=== PATIENT | male | born 1945 | race Caucasian/White ===

== ENCOUNTER 2021-10-19 07:37 | Outpatient (CLI) | payer MEDICARE, SELFPAY ==
--- NOTE | ~2021-10-19 | US_ITS ---
EXAMINATION: US renal BI DATE: 10/19/2021 08:50 INDICATION: Overactive bladder TECHNIQUE: Multiple grayscale and Doppler ultrasound images of the kidneys were obtained. COMPARISON: None. FINDINGS: The right kidney measures 11.2 x 5.3 x 4.7 cm. The left kidney measures 11.5 x 5.4 x 6.4 cm and contains a 1.1 cm stone in a 9 mm cyst. The kidneys demonstrate normal parenchymal echogenicity. There is no hydronephrosis. The prostate is enlarged. The bladder appears normal. Prevoid bladder vo lume is 497 cc. Postvoid bladder volume is 250 cc. IMPRESSION: 1. Abnormal post void residual of the urinary bladder. 2. Nonobstructing left nephrolithiasis. Reviewed, dictated and finalized at location A.
== END 2021-10-19 07:38 | disposition home or self-care (01) ==
PROVIDERS: PCP Internal Medicine; Visit Provider Urology
DX: N32.81 Overactive bladder (principal); N20.0 Calculus of kidney
CPT/HCPCS: 76775